=== PATIENT | female | born 1965 | race Caucasian/White ===

== ENCOUNTER 2017-12-22 17:39 | Emergency (ER) | payer BC ==
[2017-12-22 18:43] VITALS: BP 143/78
[2017-12-22] MEDS ORDERED: Silver Sulfadiazine 1%* 20 GM TOPICAL ONE (19:06)
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
[2017-12-22] MEDS ORDERED: Ibuprofen TAB* 600 MG PO ONE (19:12)
== END 2017-12-22 19:51 | disposition home or self-care (01) ==
LOC: UCCORT 17:39
DX: T25.132A Burn of first degree of left toe(s) (nail), initial encounter (principal); T25.122A Burn of first degree of left foot, initial encounter; T31.0 Burns involving less than 10% of body surface; X12.XXXA Contact with other hot fluids, initial encounter; Y93.9 Activity, unspecified; Y92.9 Unspecified place or not applicable
CPT/HCPCS: 16020; 99203; A9270-GY; G0463

== ENCOUNTER 2018-08-01 11:53 | Emergency (ER) | payer BC ==
[2018-08-01 12:08] VITALS: BP 174/89
--- NOTE | 2018-08-01 12:19 | UC ---
Throat Pain/Nasal Helio HPI - HPI Summary HPI Summary: Pt c/o gradual onset of nasal congestion, sinus pressure, pain, cough malaise that has worsened over the last 10 days. - History of Current Complaint Chief Complaint: UCGeneralIllness Stated Complaint: HEAD CONGESTION Time Seen by Provider: 08/01/18 12:08 Hx Obtained From: Patient ?: No Onset/Duration: Sudden Onset, Lasting Days, Still Present, Worse Since - onset Severity: Moderate Pain Intensity: 8 Cough: Nonproductive Associated Signs & Symptoms: Positive: Sinus Discomfort - Epiglottits Risk Factors Epiglottis Risk Factors: Negative - Allergies/Home Medications Allergies/Adverse Reactions: Allergies Allergy/AdvReac Type Severity Reaction Status Date / Time No Known Allergies Allergy Verified 08/01/18 12:00 PMH/Surg Hx/FS Hx/Imm Hx Previously Healthy: Yes - Surgical History Surgical History: None - Family History Known Family History: Positive: Hypertension - Social History Occupation: Employed Full-time Lives: With Family Alcohol Use: Occasionally Substance Use Type: None Smoking Status (MU): Never Smoked Tobacco Have You Smoked in the Last Year: No Review of Systems Constitutional: Fatigue Skin: Negative Eyes: Negative ENT: Nasal Discharge, Sinus Congestion, Sinus Pain/Tenderness Respiratory: Cough Cardiovascular: Negative Gastrointestinal: Negative Genitourinary: Negative Motor: Negative Neurovascular: Negative Musculoskeletal: Negative Neurological: Headache Psychological: Negative Is Patient Immunocompromised?: No All Other Systems Reviewed And Are Negative: Yes Physical Exam Triage Information Reviewed: Yes Appearance: Ill-Appearing, Other: - pt crying during portion of exam STated she is just exhausted! Vital Signs: Initial Vital Signs Temp 98.3 F 08/01/18 12:00 Pulse 88 08/01/18 12:00 Resp 16 08/01/18 12:00 BP 174/89 08/01/18 12:00 Pulse Ox 99 08/01/18 12:00 Vital Signs Reviewed: Yes Eye Exam: Normal ENT Exam: Other ENT: Positive: Nasal congestion, Sinus tenderness Dental Exam: Normal Neck exam: Normal Respiratory Exam: Normal Cardiovascular Exam: Normal Musculoskeletal Exam: Normal Neurological Exam: Normal Psychological Exam: Normal Skin Exam: Normal Throat Pain/Nasal Course/Dx - Differential Dx/Diagnosis Differential Diagnosis/HQI/PQRI: Sinusitis, URI Provider Diagnoses: sinusitis Discharge - Sign-Out/Discharge Documenting (check all that apply): Patient Departure All imaging exams completed and their final reports reviewed: No Studies - Discharge Plan Condition: Stable Disposition: HOME Prescriptions: Amoxicillin PO (*) [Amoxicillin 875 MG (*)] 875 mg PO Q12H #20 tab Patient Education Materials: Sinusitis (ED) Referrals: Byron Gomez MD [Primary Care Provider] - If Needed - Billing Disposition and Condition Condition: STABLE Disposition: Home
== END 2018-08-01 12:28 | disposition home or self-care (01) ==
LOC: UCCORT 11:53
DX: J32.9 Chronic sinusitis, unspecified (principal)
CPT/HCPCS: 99212; G0463